=== PATIENT | female | born 1950 | race Caucasian/White ===

== ENCOUNTER 2019-04-11 12:07 | Observation (INO) | payer MEDICARE, OTHER ==
[~2019-04-11 12:07] MED LIST: Lactated Ringers 1,000 ML IV SCH; Sodium Chloride 0.9% 10 ML SDV IV PRN; Sodium Chloride 0.9% 10 ML Syringe FLUSH PRN; Sodium Chloride 0.9% 2.5 ML Syringe FLUSH PRN; ceFAZolin 2 GM in Premix Bag 1 BAG IV ONE
[2019-04-11 13:08] LABS: CHLORIDE,CL 104 mmol/L (98-107); SODIUM,NA 142 mmol/L (136-145)
[2019-04-11] MEDS ORDERED: Ondansetron 4 MG/2 ML SDV ONE (13:11)
[2019-04-11] MEDS ORDERED: Propofol 200 MG/20 ML SDV ONE (13:11)
[2019-04-11] MEDS ORDERED: fentaNYL 250 MCG/5 ML SDV ONE (13:11)
[2019-04-11] MEDS ORDERED: Midazolam 1 MG/ML 2 ML SDV ONE (13:11)
--- NOTE | 2019-04-11 14:09 | PCM.PREANE ---
Preanesthetic Assessment - Anesthesia/Transfusion/Family Hx Anesthesia History: Prior Anesthesia Without Reaction Family History of Anesthesia Reaction: No Transfusion History: Prior Transfusion Without Reaction - Review of Systems General: No Symptoms Pulmonary: No Symptoms Cardiovascular: No Symptoms Gastrointestinal: No Symptoms Neurological: No Symptoms Other: Reports: None - Physical Assessment NPO Status Date: 04/11/19 NPO Status Time: 08:00 O2 Sat by Pulse Oximetry: 98 Respiratory Rate: 16 Vital Signs: Last Vital Signs Temp 97.2 F 04/11/19 12:35 Pulse 62 04/11/19 12:35 Resp 16 04/11/19 12:35 BP 164/76 H 04/11/19 12:35 Pulse Ox 98 04/11/19 12:35 Height: 5 ft 3.5 in Weight: 63.503 kg ASA Class: 2 Airway Class: Mallampati = 2 Dentition: Reports: Normal Dentition, [place](s) (porcelain upper and lower) ROM/Head Extension: Full Lungs: Clear to Auscultation, Normal Respiratory Effort Cardiovascular: Regular Rate, Regular Rhythm - Lab Values: Laboratory Last Values WBC 7.86 K/uL (4.0-11.0) 04/11/19 12:40 RBC 4.64 M/uL (4.30-5.90) 04/11/19 12:40 Hgb 14.8 g/dL (12.0-16.0) 04/11/19 12:40 Hct 44.7 % (36.0-46.0) 04/11/19 12:40 MCV 96.3 fL (80.0-98.0) 04/11/19 12:40 MCH 31.9 pg (27.0-32.0) 04/11/19 12:40 MCHC 33.1 g/dL (31.0-37.0) 04/11/19 12:40 RDW Std Deviation 51.3 fl (28.0-62.0) 04/11/19 12:40 RDW Coeff of Briana 15 % (11.0-15.0) 04/11/19 12:40 Plt Count 598 K/uL (150-400) H 04/11/19 12:40 MPV 9.10 fL (7.40-12.00) 04/11/19 12:40 Sodium 142 mmol/L (136-145) 04/11/19 12:40 Potassium 4.3 mmol/L (3.5-5.1) 04/11/19 12:40 Chloride 104 mmol/L (98-107) 04/11/19 12:40 Carbon Dioxide 29.2 mmol/L (21.0-32.0) 04/11/19 12:40 BUN 22 mg/dL (7.0-18.0) H 04/11/19 12:40 Creatinine 0.8 mg/dL (0.6-1.0) 04/11/19 12:40 Est Cr Clr Drug Dosing 55.32 mL/min 04/11/19 12:40 Estimated GFR (MDRD) > 60.0 ml/min 04/11/19 12:40 Glucose 99 mg/dL (74-106) 04/11/19 12:40 Calcium 9.4 mg/dL (8.5-10.1) 04/11/19 12:40 Blood Type O POSITIVE 04/11/19 12:40 Antibody Screen NEGATIVE 04/11/19 12:40 - Allergies Allergies/Adverse Reactions: Allergies Allergy/AdvReac Type Severity Reaction Status Date / Time enalapril Allergy Nausea and Verified 04/06/19 10:04 Vomiting - Blood Blood Available: No - Anesthesia Plan Pre-Op Medication Ordered: None - Acknowledgements Anesthesia Type Planned: General Anesthesia Pt an Appropriate Candidate for the Planned Anesthesia: Yes Alternatives and Risks of Anesthesia Discussed w Pt/Guardian: Yes Pt/Guardian Understands and Agrees with Anesthesia Plan: Yes Additional Comments: PMHL htn, hld PLAN: GA/lma PreAnesthesia Questionnaire HEENT History: Reports: Other (See Below) Other HEENT History: wears glasses Cardiovascular History: Reports: High Cholesterol, Hypertension Gastrointestinal History: Reports: Colon Polyp Genitourinary History: Reports: None Musculoskeletal History: Reports: Fracture Other Musculoskeletal History: hx of fx arm and ankle Hematologic History: Reports: Blood Transfusion(s) Oncologic (Cancer) History: Reports: Breast - Past Surgical History HEENT Surgical History: Reports: Adenoidectomy, Oral Surgery, Tonsillectomy Other HEENT Surgeries/Procedures: had a "tumor" on gum tissue- tumor and several teeth removed- tumor was benign GI Surgical History: Reports: Appendectomy, Colonoscopy Female Surgical History: Reports: Breast Biopsy Other Female Surgeries/Procedures: left breast lumpectomy for breast cancer Oncologic Surgical History: Reports: Lumpectomy - SUBSTANCE USE Smoking Status *Q: Former Smoker Tobacco Use Within Last Twelve Months: No Days Per Week of Alcohol Use: 2 Recreational Drug Use History: No - HOME MEDS Home Medications: Home Meds Aspirin [Adult Low Dose Aspirin EC] 81 mg PO DAILY 04/06/19 [History] Calcium Carbonate/Vitamin D3 [Calcium 600 + Vit D 200] 1 tab PO DAILY 04/06/19 [ History] Naproxen Sodium 220 mg PO Q8H PRN 04/06/19 [History] Triamterene/Hydrochlorothiazid [Triamterene-HCTZ 37.5-25 MG] 1 cap PO DAILY [History] atorvaSTATin [Lipitor] 10 mg PO ASDIRECTED 04/06/19 [History] - CURRENT (IN HOUSE) MEDS Current Meds: Current Medications Lactated Ringer's (Ringers, Lactated) 1,000 mls @ 500 mls/hr IV BOLUS ARABELLA Last Admin: 04/11/19 12:45 Dose: 500 mls/hr Sodium Chloride (Saline Flush) 10 ml FLUSH ASDIRECTED PRN PRN Reason: Keep Vein Open Sodium Chloride (Saline Flush) 2.5 ml FLUSH ASDIRECTED PRN PRN Reason: Keep Vein Open Sodium Chloride (Normal Saline) 10 ml IV ASDIRECTED PRN PRN Reason: IV Use Discontinued Medications Fentanyl (Sublimaze) Confirm Administered Dose 250 mcg .ROUTE .STK-MED ONE Stop: 04/11/19 13:12 Cefazolin Sodium/Dextrose 2 gm (/ Premix) 50 mls @ 100 mls/hr IV ONETIME ONE Stop: 04/11/19 11:06 Lidocaine HCl (Xylocaine-Mpf 1%) Confirm Administered Dose 5 mls @ as directed .ROUTE .STK-MED ONE Stop: 04/11/19 13:12 Midazolam HCl (Versed 1 Mg/Ml) Confirm Administered Dose 2 mg .ROUTE .STK-MED ONE Stop: 04/11/19 13:12 Ondansetron HCl (Zofran) Confirm Administered Dose 4 mg .ROUTE .STK-MED ONE Stop: 04/11/19 13:12 Propofol (Diprivan 20 Ml) Confirm Administered Dose 200 mg .ROUTE .STK-MED ONE Stop: 04/11/19 13:12
[2019-04-11] MEDS ORDERED: Desflurane 240 ML Bottle ONE (16:28)
[2019-04-11] MEDS ORDERED: 50% Dextrose in Water 50 ML Syringe IVPUSH PRN (17:24)
[2019-04-11] MEDS ORDERED: Atropine 0.1 MG/ML 10 ML Syringe IVPUSH PRN ×2 (17:24)
[2019-04-11] MEDS ORDERED: Albuterol 0.083% 2.5 MG/3 ML Neb Soln NEB PRN (17:24)
[2019-04-11] MEDS ORDERED: Naloxone 0.4 MG/ML Syringe IVPUSH PRN (17:24)
[2019-04-11] MEDS ORDERED: EPINEPHrine 1:10,000 1 MG/10 ML Syringe IVPUSH PRN (17:24)
[2019-04-11] MEDS ORDERED: fentaNYL 100 MCG/2 ML SDV IVPUSH PRN (17:24)
[2019-04-11] MEDS ORDERED: Ketorolac 30 MG/ML SDV IVPUSH ONE (17:33)
[2019-04-11] MEDS ORDERED: Acetaminophen/oxyCODONE 325-5 MG Tab PO PRN ×2 (17:33)
[2019-04-11] MEDS ORDERED: Ondansetron 4 MG/2 ML SDV IVPUSH PRN (17:33)
[2019-04-11] MEDS ORDERED: Promethazine 25 MG/ML SDV IM PRN (17:33)
[2019-04-11] MEDS ORDERED: Ketorolac 30 MG/ML SDV IVPUSH PRN (17:33)
[2019-04-11] MEDS ORDERED: Morphine 4 MG/ML Syringe IVPUSH PRN (17:33)
--- NOTE | 2019-04-11 17:57 | PCM.POSTAN ---
POST ANESTHESIA ASSESSMENT - MENTAL STATUS Mental Status: Alert, Oriented - RESPIRATORY Respiratory Status: Respiratory Rate WNL, Airway Patent, O2 Saturation Stable - CARDIOVASCULAR CV Status: Pulse Rate WNL, Blood Pressure Stable - GASTROINTESTINAL GI Status: No Symptoms - POST OP HYDRATION Hydration Status: Adequate & Stable
--- NOTE | 2019-04-11 18:30 | PCM.OPNOTE ---
- General Post-Op/Procedure Note Date of Surgery/Procedure: 04/11/19 Operative Procedure(s): Anterior and Posterior Colporraphy. Perineorraphy Findings: EUA ; Atrophic uterus and cervix atrophic and flushed with vagina Grade 2 Cytocoele , Enterocoele Pre Op Diagnosis: 69 yo with Cystocoele and Rectocoele Post-Op Diagnosis: Cystocoele and Enterocoele Anesthesia Technique: General ET Tube Primary Surgeon: Heraclio Ingram Secondary Surgeon: Janene Sanchez Fluid Replacement, Intraop: 1,600 Output, Urine Amount: 100 EBL in mLs: 50 Complications: None Condition: Good Free Text/Narrative:: Intake & Output 04/11/19 04/11/19 04/11/19 06:59 14:59 22:59 Output Total 100 Balance -100
--- NOTE | 2019-04-11 19:33 | PCM48HPAN ---
Post Anesthesia Note - EVALUATION WITHIN 48HRS OF ANESTHETIC Vital Signs in Normal Range: Yes Patient Participated in Evaluation: Yes Respiratory Function Stable: Yes Airway Patent: Yes Cardiovascular Function Stable: Yes Hydration Status Stable: Yes Pain Control Satisfactory: Yes Nausea and Vomiting Control Satisfactory: Yes (eating and drinking) Mental Status Recovered: Yes Resp Rate: 18
--- NOTE | 2019-04-13 10:37 | OR ---
SURGEON: EKTA DE LA VEGA DATE OF PROCEDURE: 04/11/2019 PREOPERATIVE DIAGNOSIS: A 69-year-old with cystocele and rectocele. POSTOPERATIVE DIAGNOSIS: A 69-year-old with cystocele and rectocele. PROCEDURE: Anterior-posterior Colporraphy Perineoraphy BRIEF HISTORY ABOUT THE PATIENT: The patient is a 69-year-old with cystocele and rectocele. She desired definitive management and declined any pessary or conservative management.She was given the option for referral to a urogynecologist in [place] vs repair at [facility]. I informed of my experience and told her that if she wanted to do it a [facility] , it will be done with a partner. she was informed of the risk benefit and alternative. She declined referral and wanted to proceed with repair here. IV FLUIDS: 1600. URINE OUTPUT: 100. EBL: 50. NOTES AND FINDINGS: Examination under anesthesia revealed cystocele grade 2 and rectocele grade 2. Small Uterus , cervix was flushed with vagina DESCRIPTION OF PROCEDURE: The patient was taken to the operating room where general anesthesia was performed without difficulty. She was prepared and draped in the dorsolithotomy position with Niels stirrups. A vertical incision was made in the vaginal wall about 2 cm from the cervix and 3 cm from the ureteral orifice. The incision was about 5 cm, and then the muscularis layer was from the vagina mucosa by hydrodissection with normal saline. Then the muscular layer overlying the bladder was seperated from the vagina mucosa with the metzebaum scissor.Then, the muscularis layer overlying the bladder was approximated from left to right to help to reduce the cystoceole. The excessive vaginal mucosa was trimmed .Then, the vagina mucosa was then approximated continuous interlocking stitch ( 2.0 vicryl) ensuring the space is closed. Then, attention was placed to the perineum where a martin-shaped incision was made at the perineum at the posterior fourchette to give access to the posterior vaginal wall. Hydrodissection was then done, The vagina mucosa was seperated with the Metzenbaum scissors from the underlying tissue, When the enterocele was reached, a posterior suture was moved from top to bottom to help to reduce the enterocele with the good supporting muscular tissue of the perineum. After this was done and the defect was sutured in layers, then the posterior vagina was also repaired with interlocking stitch and the perineum was repaired with a subcutaneous stitch ( 2.0 monocyrl ). The vagina was packed. The patient tolerated the procedure well. All instrument and pad count were correct x2. AINSLEY LIU /[id number] MTDD
== END 2019-04-11 21:25 | disposition home or self-care (01) ==
LOC: MW.SDS 12:07 → MW.MS 12:08 → MW.SDS 14:36
PROVIDERS: ADMIT Obstetrics & Gynecology; ATTEND Obstetrics & Gynecology
DX: N81.6 Rectocele (principal); N81.10 Cystocele, unspecified; I10 Essential (primary) hypertension; E78.00 Pure hypercholesterolemia, unspecified; Z85.3 Personal history of malignant neoplasm of breast; Z79.899 Other long term (current) drug therapy; Z98.890 Other specified postprocedural states; Z88.8 Allergy status to other drugs, medicaments and biological substances; Z87.891 Personal history of nicotine dependence
CPT/HCPCS: 36415; 57260; 80048; 85027; 86850; 86900; 86901; J2001; J2250; J2405; J2704; J3010; J7120; 00942